=== PATIENT | female | born 1960 | race American Indian/Alaskan Native ===

== ENCOUNTER 2018-11-15 15:12 | Emergency (ER) | payer MEDICAID ==
[2018-11-15 15:29] VITALS: BP 127/87
[2018-11-15] MEDS ORDERED: ULTRAM PO ONE (15:49)
--- NOTE | 2018-11-15 16:02 | Emergency Department Report ---
ED Fall HPI - General Chief Complaint: Fall Stated Complaint: FALL Time Seen by Provider: 11/15/18 15:36 Source: patient, EMS Mode of arrival: Ambulatory - History of Present Illness Initial Comments: 58-year-old female presents to the ED following a ground-level fall at [employer]. Patient states she tripped and fell over a clothing cart. Patient denies LOC. Reports pain to neck, lower back, right elbow, bilateral lower legs. Has abrasions to the lips. MD Complaint: fall -: This afternoon Fall From: standing When Fall Occurred: 1 hour [employer]IC[employer] Fall Witnessed: yes, by bystander Place Fall Occurred: other ([place]) Loss of Consciousness: none Prolonged Down Time?: no Symptoms Prior to Fall: none Location: face, neck, back Location - Extremities: Left: Knee, Right: Elbow, Knee Severity: moderate Context: tripped/slipped Associated Symptoms: neck pain. denies: headache, numbness, weakness, chest paint, shortness of breath, abdominal pain - Related Data Previous Rx's Medication Instructions Recorded Last Taken Type traMADol [Ultram] 50 mg PO Q6HR PRN #7 tablet 11/15/18 Unknown Rx Allergies Allergy/AdvReac Type Severity Reaction Status Date / Time ibuprofen [From Motrin] Allergy Hives Verified 11/15/18 15:22 ketorolac [From Toradol] Allergy Hives Verified 11/15/18 15:22 naproxen [From Naprosyn] Allergy Hives Verified 11/15/18 15:22 ED Review of Systems ROS: Stated complaint: FALL Other details as noted in HPI Comment: All other systems reviewed and negative Cardiovascular: denies: chest pain Gastrointestinal: denies: abdominal pain Musculoskeletal: as per HPI Neurological: denies: weakness, numbness ED Past Medical Hx - Past Medical History Previous Medical History?: No - Surgical History Hx Cholecystectomy: Yes Additional Surgical History: tubal ligation - Social History Smoking Status: Never Smoker Substance Use Type: None - Medications Home Medications: Home Medications Medication Instructions Recorded Confirmed Last Taken Type traMADol [Ultram] 50 mg PO Q6HR PRN #7 tablet 11/15/18 Unknown Rx ED Physical Exam - General Limitations: No Limitations General appearance: alert, in no apparent distress - Head Head exam: Present: atraumatic, normocephalic - Eye Eye exam: Present: normal appearance - ENT ENT exam: Present: other (abrasions to nose and just above upper lip) - Neck Neck exam: Present: normal inspection, tenderness (right paraspinal) - Respiratory Respiratory exam: Present: normal lung sounds bilaterally. Absent: respiratory distress - Cardiovascular Cardiovascular Exam: Present: regular rate, normal rhythm - GI/Abdominal GI/Abdominal exam: Present: soft. Absent: distended, tenderness - Extremities Exam Extremities exam: Present: normal inspection, full ROM. Absent: joint swelling - Back Exam Back exam: Present: paraspinal tenderness (lower lumbar). Absent: vertebral tenderness - Neurological Exam Neurological exam: Present: alert, oriented X3, CN II-XII intact. Absent: motor sensory deficit - Psychiatric Psychiatric exam: Present: normal affect, normal mood - Skin Skin exam: Present: warm, dry, intact, normal color ED Course Vital Signs 11/15/18 15:22 Temperature 97.8 F Pulse Rate 94 H Respiratory 18 Rate Blood Pressure 127/87 O2 Sat by Pulse 98 Oximetry ED Medical Decision Making - Radiology Data Radiology results: report reviewed, image reviewed - Differential Diagnosis intracranial injury, fracture, sprain Critical care attestation.: If time is entered above; I have spent that time in minutes in the direct care of this critically ill patient, excluding procedure time. ED Disposition Clinical Impression: Fall from ground level, Acute cervical myofascial strain, Acute lumbar myofascial strain, Contusion of knee, left, Contusion of knee, right, Contusion of right elbow Disposition: DC-01 TO HOME OR SELFCARE Is pt being admited?: No Condition: Stable Instructions: Muscle Strain (ED), Contusion in Adults (ED) Prescriptions: traMADol [Ultram] 50 mg PO Q6HR PRN #7 tablet PRN Reason: Pain Referrals: [facility] [Provider Group] - 3-5 Days APRIL KAUFMAN MD [Primary Care Provider] - 3-5 Days PRIMARY CAREMD [Referring] - 3-5 Days NNAMDI MCCURDY MD [Staff Physician] - 3-5 Days Time of Disposition: 18:18
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
== END 2018-11-15 18:28 | disposition home or self-care (01) ==
LOC: ED 15:12
DX: S39.012A Strain of muscle, fascia and tendon of lower back, initial encounter (principal); S16.1XXA Strain of muscle, fascia and tendon at neck level, initial encounter; S80.02XA Contusion of left knee, initial encounter; S80.01XA Contusion of right knee, initial encounter; S50.01XA Contusion of right elbow, initial encounter; R51 Headache; Z90.49 Acquired absence of other specified parts of digestive tract; Z98.51 Tubal ligation status; Z88.6 Allergy status to analgesic agent; Z88.8 Allergy status to other drugs, medicaments and biological substances; W18.30XA Fall on same level, unspecified, initial encounter; Y93.89 Activity, other specified; Y99.8 Other external cause status; Y92.89 Other specified places as the place of occurrence of the external cause
CPT/HCPCS: 70450; 72100; 72125